=== PATIENT | male | born 1975 | race Caucasian/White ===

== ENCOUNTER → 2024-12-10 | Outpatient (CLI) | payer SELFPAY ==
--- NOTE | 2024-12-10 10:32 | CT ---
EXAMINATION TYPE: CT heart w calcium score DATE OF EXAM: 12/10/2024 COMPARISON: None CLINICAL INDICATION: Male, 49 years old with history of E78.00 PURE HYPERCHOLESTEROLEMIA R07.9 CHEST PAIN; PHH, high cholesterol levels, family history of cardiac disease TECHNIQUE: Prospective Gating was used. Slice thickness: 3mm. Density threshold (HU): 130, Pixel threshold: 3, Algorithm: discrete. CT DLP: 148.[address] CTDI: 8.07 mGy Automated exposure control for dose reduction was used. FINDINGS: CT CALCIUM SCORING Coronary calcium is a marker for plaque (fatty deposits) in a blood vessel or atherosclerosis (harden ing of the arteries). The presence and amount of calcium detected in a coronary artery by the CT sca n, indicates the presence and amount of atherosclerotic plaque. These calcium deposits appear years before the development of heart disease symptoms such as chest pain and shortness of breath. A calcium score is computed for each of the coronary arteries based upon the volume and density of th e calcium deposits. This can be referred to as your calcified plaque burden. It does not correspond directly to the percentage of narrowing in the artery but does correlate with the severity of the un derlying coronary atherosclerosis. RESULTS Region: LM Calcium Score ([place]): 0 Volume (mm3): 0 Mass (g): 0 Region: RCA Calcium Score ([place]): 0 Volume (mm3): 0 Mass (g): 0 Region: LAD Calcium Score ([place]): 0 Volume (mm3): 0 Mass (g): 0 Region: CX Calcium Score ([place]): 0 Volume (mm3): 0 Mass (g): 0 Region: PDA Calcium Score ([place]): 0 Volume (mm3): 0 Mass (g): 0 Total: Calcium Score ([place]): 0 Volume (mm3): 0 Mass (g): 0 INCIDENTAL: Ectatic ascending aorta 3.7 cm. Mildly enlarged caliber main right and left pulmonary arteries up to 2.6 cm the reflect underlying pu lmonary hypertension. Visualized lungs appear clear. IMPRESSION: Calcium Score: 0 Implication: No identifiable plaque. Risk of Coronary Artery Disease: Very low, generally less than 5%. [facility], Workstation: [id number] DevicesMARIANA, 12/10/2024 10:30 AM
== END | disposition home or self-care (01) ==
LOC: RADCTMAIN 09:22
PROVIDERS: ATTEND Family Medicine
DX: E78.00 Pure hypercholesterolemia, unspecified (principal); I25.10 Atherosclerotic heart disease of native coronary artery without angina pectoris
CPT/HCPCS: 75571